=== PATIENT | female | born 1945 | race Two or more races ===

== ENCOUNTER 2017-09-10 00:27 | Emergency (ER) | payer OTHER ==
[~2017-09-10] VITALS: Ht 165.1 cm; Wt 92.1 kg
[2017-09-10] MEDS ORDERED: ALTACE5 MG (00:35)
[2017-09-10] MEDS ORDERED: XARELTO10 MG (00:35)
[2017-09-10] MEDS ORDERED: ULTRACET PO (03:21)
== END 2017-09-10 03:25 ==
LOC: ER 00:27
DX: M25.562 Pain in left knee (principal)

== ENCOUNTER 2021-01-09 12:31 | Outpatient (CLI) | payer OTHER ==
[~2021-01-09 12:31] MED LIST: ALTACE5 MG; ULTRACET PO; XARELTO10 MG
== END 2021-01-09 12:32 | disposition home or self-care (01) ==
LOC: NUCLEAR 12:31
PROVIDERS: ATTEND Family Medicine Adult Medicine
DX: M81.0 Age-related osteoporosis without current pathological fracture (principal)

== ENCOUNTER 2021-04-02 12:17 | Emergency (ER) | payer OTHER ==
[~2021-04-02] VITALS: Ht 165.1 cm; Wt 90.7 kg
[2021-04-02] MEDS ORDERED: AMLODIPINE-OLM1 EACH PO (12:35)
[2021-04-02] MEDS ORDERED: LEVOTHYROXINE25 MCG PO (12:35)
== END 2021-04-02 21:16 | disposition home or self-care (01) ==
LOC: ER 12:17
DX: R07.89 Other chest pain (principal); I10 Essential (primary) hypertension

== ENCOUNTER 2021-04-24 08:16 | Outpatient (CLI) | payer OTHER ==
[~2021-04-24 08:16] MED LIST changes: +AMLODIPINE-OLM1 EACH PO; +LEVOTHYROXINE25 MCG PO
== END 2021-04-24 08:27 | disposition home or self-care (01) ==
LOC: SONOGRAMA 08:16
PROVIDERS: ATTEND Family Medicine Adult Medicine
DX: E03.9 Hypothyroidism, unspecified (principal); I20.8 Other forms of angina pectoris

== ENCOUNTER 2022-08-23 09:38 | Outpatient (CLI) | payer OTHER | END 2022-08-23 09:39 | disposition home or self-care (01) | LOC: RAD 09:38 | PROVIDERS: ATTEND Internal Medicine Pulmonary Disease | DX: R06.02 Shortness of breath (principal) ==

== ENCOUNTER 2022-10-21 14:20 | Emergency (ER) | payer OTHER ==
[~2022-10-21] VITALS: Ht 162.6 cm; Wt 83.5 kg
[2022-10-21] MEDS ORDERED: ATORVASTATIN CA20 MG PO (14:44)
[2022-10-21] MEDS ORDERED: DICLOFENAC SODI75 MG PO (18:21)
[2022-10-21] MEDS ORDERED: LEVOFLOXACIN750 MG PO (18:21)
== END 2022-10-21 18:32 | disposition home or self-care (01) ==
LOC: ER 14:20
DX: N39.0 Urinary tract infection, site not specified (principal); M54.9 Dorsalgia, unspecified; M51.37 Other intervertebral disc degeneration, lumbosacral region
CPT/HCPCS: 71046; 72100; 96372; 99284; J0696; J1885; J3301

== ENCOUNTER 2022-11-03 11:03 | Outpatient (CLI) | payer OTHER ==
[~2022-11-03 11:03] MED LIST changes: +ATORVASTATIN CA20 MG PO; +DICLOFENAC SODI75 MG PO; +LEVOFLOXACIN750 MG PO
== END 2022-11-03 11:11 | disposition home or self-care (01) ==
LOC: RAD 11:03
PROVIDERS: ATTEND Family Medicine Adult Medicine
DX: M19.019 Primary osteoarthritis, unspecified shoulder (principal)

== ENCOUNTER → 2024-01-19 13:34 | Outpatient (CLI) | payer OTHER | END | disposition home or self-care (01) | LOC: NUCLEAR 12-29 13:30 | PROVIDERS: ATTEND Family Medicine Adult Medicine | DX: M81.0 Age-related osteoporosis without current pathological fracture (principal) ==

== ENCOUNTER 2024-04-10 10:54 | Inpatient (IN) | payer OTHER ==
[~2024-04-10] VITALS: Ht 162.6 cm; Wt 98.4 kg
[2024-04-10] MEDS ORDERED: XARELTO20 M1 (11:33)
[2024-04-10] MEDS ORDERED: FARXIGA5 MG (11:33)
--- NOTE | 2024-04-10 11:53 | NUR ---
SE RECIBE PACIENTE ALERTA Y ORIENTADA X 3 ESFERAS EN [place] Y EN COMPANIA DE FAMILIAR LA CUAL INDICA QUE PACIENTE DESDE HACE JAILENE SEMANA PRESENTA FATIGA Y EDEMA EN EXTREMIDADES INFERIORES. PACIENTE CON REFERIDO MEDICO DE LA KEITH.IVET ADLER POR HIPOXEMIA. SE REALIZA EKG Y SE PRESENTA A DR.ENRIQUEZ. SE CONECTA A MONITOR CARDIACO Y OXIMETRIA DE PULSO.
[2024-04-10 13:00] LABS: ABG PH 7.341 (7.35-7.45); ABG PO2 69.1 mmHg (80-100); ABG pCO2 31.3 mmHg (35-45); BASE EXCESS -7.9 mmol/l; BICARBONATE 16.5 mmol/l (23-25); SaO2 91.8 %; Tco2 17.5 mmol/l
--- NOTE | 2024-04-10 13:08 | NUR ---
SE NOTIFICA DOMINIC A MS FALU.
[2024-04-10 13:58] LABS: allen test SATISFACTORY; o2 32 %; puncture site RADIAL RIGHT
[2024-04-10 15:12] LABS: HEMATOCRIT 45.9 % (36.0-45.00); HEMOGLOBIN 14.5 g/dL (12.0-15.00); MEAN CELL VOLUME 94.6 fL (80.00-100.00); MEAN CORPUSCULAR HEMOGLOBIN 29.9 pg (27.00-32.0); MEAN CORPUSCULAR HGB CONC 31.6 g/dl (32.0-36.0); PLATELET COUNT 132 K/uL (150-450); RED BLOOD COUNT 4.85 M/uL (4.00-6.00); RED CELL DISTRIBUTION WIDTH 17.3 % (11.5-14.5)
[2024-04-10 15:36] LABS: ALBUMIN 3.7 gm/dL (3.4-5.0); BILIRUBIN TOTAL 0.95 mg/dL (0.3-1.2); CALCIUM 9.2 mg/dL (8.5-10.1); CREATININE SERUM 2.05 mg/dL (0.55-1.02); GFR 23.36; GLOBULINA 3.4 G/DL (2.4-3.5); POTASSIUM 4.95 mEq/L (3.5-5.1); TOTAL PROTEIN 7.1 gm/dL (6.4-8.2)
[2024-04-10 17:05] LABS: URINE APPEARANCE Clear; URINE BILIRRUBIN Negative (NEGATIVE); URINE BLOOD Negative; URINE COLOR Yellow; URINE GLUCOSE Negative (NEGATIVE); URINE KETONE Negative (NEGATIVE); URINE LEUKOCYTE Trace; URINE NITRATE Negative; URINE PROTEIN Negative (NEGATIVE); URINE UROBILINOGEN 0.2 E.U./dl
[2024-04-10 17:09] LABS: URINE BACTERIA 106.4 uL (0.0-1933); URINE CAST 8.39 uL (0.0-1.40); URINE EPITHELIAL CELLS 27.3 uL (0.0-38.8); URINE WBC 25.8 uL (0.0-23.2)
[2024-04-10 17:15] LABS: URINE RBC 1.1 uL (0.0-20.8)
[2024-04-10] MEDS ORDERED: IPRATROPIUM BROMIDE 0.5 MG/2.5 ML AMPUL.NEB IH SCH (18:33)
[2024-04-10] MEDS ORDERED: FUROsemide 40 MG/4 ML VIAL IV SCH (18:38)
[2024-04-10] MEDS ORDERED: ACETAMINOPHEN 500 MG GEL..CAP PO PRN (18:45)
[2024-04-10] MEDS ORDERED: ONDANSETRON HCL 4 MG in 0.9 % SODIUM CHLORIDE 50 ML IV PRN (18:45)
[2024-04-10] MEDS ORDERED: FUROsemide 40 MG/4 ML VIAL ONE (20:28)
[2024-04-10 21:00] VITALS: BP 110/56; O2SAT 95
[2024-04-10 23:00] VITALS: BP 99/59; O2SAT 97
[2024-04-11] VITALS (17 sets, daily range): BP systolic 82–135; BP diastolic 43–84; O2SAT 94–100
[2024-04-11] MEDS ORDERED: LEVOTHYROXINE SODIUM 112 MCG TABLET PO SCH (06:00)
[2024-04-11 07:14] LABS: CHOL HDL RATIO 1.8 (0-5.0); MAGNESIUM 2.7 mg/dL (1.8-2.4); PHOSPHOROUS 4.5 mg/dL (2.5-4.9); TSH 3.68 uIU/mL (0.358-3.74)
[2024-04-11] MEDS ORDERED: CHLORHEXIDINE GLUCONATE 120 ML BOTTLE TOP ONE (08:03)
[2024-04-11] MEDS ORDERED: AMLODIPINE BESYLATE 5 MG TABLET PO SCH (09:00)
[2024-04-11] MEDS ORDERED: SERTRALINE HCL 25 MG TABLET PO SCH (09:00)
[2024-04-11] MEDS ORDERED: FAMOTIDINE/PF 20 MG in 0.9 % SODIUM CHLORIDE 8 ML IV PUSH SCH (09:00)
[2024-04-11] MEDS ORDERED: RIVAROXABAN 20 MG TABLET PO SCH (09:00)
[2024-04-11] MEDS ORDERED: ATORVASTATIN CALCIUM 20 MG TABLET PO SCH (09:00)
[2024-04-11] MEDS ORDERED: NOREPINEPHRINE BITARTRATE 1 MG/ML AMPUL IV SCH (13:45)
[2024-04-11] MEDS ORDERED: NOREPINEPHRINE BITARTRATE 4 MG/D5W WITH TITRATING INSTRUCTIONS IV SCH (14:15)
[2024-04-12] VITALS (11 sets, daily range): BP systolic 96–159; BP diastolic 58–78; O2SAT 92–98
[2024-04-12 06:49] LABS: HEMATOCRIT 38.6 % (36.0-45.00); HEMOGLOBIN 12.8 g/dL (12.0-15.00); MEAN CELL VOLUME 92.5 fL (80.00-100.00); MEAN CORPUSCULAR HEMOGLOBIN 30.6 pg (27.00-32.0); MEAN CORPUSCULAR HGB CONC 33.1 g/dl (32.0-36.0); RED BLOOD COUNT 4.18 M/uL (4.00-6.00); RED CELL DISTRIBUTION WIDTH 16.9 % (11.5-14.5)
[2024-04-12 07:15] LABS: PLATELET COUNT 122 K/uL (150-450)
[2024-04-12 07:34] LABS: ALBUMIN 3.3 gm/dL (3.4-5.0); BILIRUBIN TOTAL 1.03 mg/dL (0.3-1.2); CREATININE SERUM 1.85 mg/dL (0.55-1.02); GFR 26.3; GLOBULINA 2.7 G/DL (2.4-3.5); MAGNESIUM 2.6 mg/dL (1.8-2.4); PHOSPHOROUS 4.3 mg/dL (2.5-4.9); POTASSIUM 4.31 mEq/L (3.5-5.1)
[2024-04-12] MEDS ORDERED: RIVAROXABAN 15 MG TABLET PO SCH (09:00)
[2024-04-13 04:00] VITALS: BP 113/81; O2SAT 96
[2024-04-13 07:30] VITALS: BP 117/84; O2SAT 95
[2024-04-13] MEDS ORDERED: PANTOPRAZOLE SODIUM 40 MG TABLET.DR PO SCH (12:00)
[2024-04-13 16:06] VITALS: BP 125/75; O2SAT 96
[2024-04-13 20:48] VITALS: BP 138/82
[2024-04-13] MEDS ORDERED: FUROsemide 20 MG/2 ML VIAL IV SCH (21:00)
[2024-04-14] VITALS (8 sets, daily range): BP systolic 113–145; BP diastolic 68–84; O2SAT 93–97
[2024-04-14 07:28] LABS: HEMATOCRIT 40.8 % (36.0-45.00); HEMOGLOBIN 13.4 g/dL (12.0-15.00); MEAN CELL VOLUME 92.5 fL (80.00-100.00); MEAN CORPUSCULAR HEMOGLOBIN 30.5 pg (27.00-32.0); PLATELET COUNT 139 K/uL (150-450); RED BLOOD COUNT 4.41 M/uL (4.00-6.00); RED CELL DISTRIBUTION WIDTH 17.2 % (11.5-14.5)
[2024-04-14 07:53] LABS: ALBUMIN 3.6 gm/dL (3.4-5.0); BILIRUBIN TOTAL 1.31 mg/dL (0.3-1.2); CALCIUM 9.2 mg/dL (8.5-10.1); CREATININE SERUM 1.96 mg/dL (0.55-1.02); GFR 24.6; GLOBULINA 3.1 G/DL (2.4-3.5); MAGNESIUM 2.5 mg/dL (1.8-2.4); PHOSPHOROUS 3.8 mg/dL (2.5-4.9); POTASSIUM 4.08 mEq/L (3.5-5.1); TOTAL PROTEIN 6.7 gm/dL (6.4-8.2)
[2024-04-14] MEDS ORDERED: ZOLPIDEM TARTRATE 5 MG TABLET PO SCH (21:00)
[2024-04-15] VITALS (8 sets, daily range): BP systolic 96–126; BP diastolic 63–70; O2SAT 91–100
[2024-04-15] MEDS ORDERED: FUROsemide 20 MG/2 ML VIAL IV SCH (09:00)
[2024-04-16 03:15] VITALS: BP 127/79
[2024-04-16 06:00] VITALS: O2SAT 96
[2024-04-16 07:06] LABS: HEMATOCRIT 39.9 % (36.0-45.00); HEMOGLOBIN 12.9 g/dL (12.0-15.00); MEAN CELL VOLUME 93.4 fL (80.00-100.00); MEAN CORPUSCULAR HEMOGLOBIN 30.1 pg (27.00-32.0); MEAN CORPUSCULAR HGB CONC 32.3 g/dl (32.0-36.0); RED BLOOD COUNT 4.27 M/uL (4.00-6.00); RED CELL DISTRIBUTION WIDTH 16.9 % (11.5-14.5)
[2024-04-16 07:15] LABS: PLATELET COUNT 124 K/uL (150-450)
[2024-04-16 07:52] LABS: ALBUMIN 3.7 gm/dL (3.4-5.0); BILIRUBIN TOTAL 1.09 mg/dL (0.3-1.2); CALCIUM 9.1 mg/dL (8.5-10.1); CREATININE SERUM 1.89 mg/dL (0.55-1.02); GFR 25.66; MAGNESIUM 2.5 mg/dL (1.8-2.4); PHOSPHOROUS 3.7 mg/dL (2.5-4.9); POTASSIUM 4.07 mEq/L (3.5-5.1); TOTAL PROTEIN 6.7 gm/dL (6.4-8.2)
[2024-04-16 08:59] VITALS: BP 120/64; O2SAT 98
[2024-04-16] MEDS ORDERED: BUMETANIDE 0.5 MG TABLET PO SCH (09:00)
[2024-04-16 09:09] VITALS: O2SAT 90
[2024-04-16] MEDS ORDERED: XARELTO15 MG PO (13:24)
[2024-04-16] MEDS ORDERED: TOPROL XL25 M1 PO (13:24)
[2024-04-16] MEDS ORDERED: LIPITOR20 MG PO (13:25)
[2024-04-16] MEDS ORDERED: SERTRALINE HCL25 MG PO (13:25)
[2024-04-16] MEDS ORDERED: LEVOTHYROXINE112 MCG PO (13:25)
[2024-04-16] MEDS ORDERED: BUMETANIDE0.5 MG PO (13:25)
[2024-04-16] MEDS ORDERED: PANTOPRAZOLE SO20 MG PO (13:28)
== END 2024-04-16 13:41 | disposition home or self-care (01) | DRG 292 ==
LOC: ER 10:57 → ICU-2 20:40 → O/R 04-11 12:22 → ICU-2 04-11 12:25 → ICU 04-11 18:33 → MEDJ 04-13 17:57
PROVIDERS: Emergency Medicine; General Practice; ADMIT Internal Medicine; ATTEND Internal Medicine
PROC: 4A12X4Z Monitoring of Cardiac Electrical Activity, External Approach (ICD-10-PCS; principal; 2024-04-10)
PROC: BT43ZZZ Ultrasonography of Bilateral Kidneys (ICD-10-PCS; 2024-04-10)
PROC: BB24ZZZ Computerized Tomography (CT Scan) of Bilateral Lungs (ICD-10-PCS; 2024-04-10)
PROC: B246ZZZ Ultrasonography of Right and Left Heart (ICD-10-PCS; 2024-04-11)
PROC: 3E0F7GC Introduction of Other Therapeutic Substance into Respiratory Tract, Via Natural or Artificial Opening (ICD-10-PCS; 2024-04-11)
DX: I50.813 Acute on chronic right heart failure (principal); E87.21 Acute metabolic acidosis; I13.0 Hypertensive heart and chronic kidney disease with heart failure and stage 1 through stage 4 chronic kidney disease, or unspecified chronic kidney disease; N17.9 Acute kidney failure, unspecified; J90 Pleural effusion, not elsewhere classified; E87.70 Fluid overload, unspecified; I48.91 Unspecified atrial fibrillation; D69.59 Other secondary thrombocytopenia; E03.9 Hypothyroidism, unspecified; N18.9 Chronic kidney disease, unspecified; R60.1 Generalized edema; G47.33 Obstructive sleep apnea (adult) (pediatric)

== ENCOUNTER 2024-04-18 21:36 | Inpatient (IN) | payer OTHER ==
[~2024-04-18] VITALS: Ht 162.6 cm; Wt 98.4 kg
[~2024-04-18 21:36] MED LIST changes: +BUMETANIDE0.5 MG PO; +FARXIGA5 MG; +LEVOTHYROXINE112 MCG PO; +LIPITOR20 MG PO; +PANTOPRAZOLE SO20 MG PO; +SERTRALINE HCL25 MG PO; +TOPROL XL25 M1 PO; +XARELTO15 MG PO; +XARELTO20 M1
[2024-04-19] MEDS ORDERED: 0.9 % SODIUM CHLORIDE 500 ML IV ONE (00:30)
[2024-04-19 00:45] LABS: HEMATOCRIT 42.7 % (36.0-45.00); HEMOGLOBIN 14.1 g/dL (12.0-15.00); MEAN CELL VOLUME 92.9 fL (80.00-100.00); MEAN CORPUSCULAR HEMOGLOBIN 30.5 pg (27.00-32.0); MEAN CORPUSCULAR HGB CONC 32.9 g/dl (32.0-36.0); PLATELET COUNT 139 K/uL (150-450); RED CELL DISTRIBUTION WIDTH 17.3 % (11.5-14.5)
[2024-04-19 01:10] LABS: INR 2.21; PARTIAL THROMBOPLASTIN TIME 37.5 SECONDS (22.0-34.0)
[2024-04-19 01:11] LABS: PROTHROMBIN TIME 22.7 SECONDS (9.0-11.5)
[2024-04-19 01:14] LABS: ALBUMIN 3.5 gm/dL (3.4-5.0); BILIRUBIN TOTAL 0.95 mg/dL (0.3-1.2); CREATININE SERUM 2.56 mg/dL (0.55-1.02); GFR 18.08; GLOBULINA 3.1 G/DL (2.4-3.5); POTASSIUM 4.78 mEq/L (3.5-5.1); TOTAL PROTEIN 6.6 gm/dL (6.4-8.2)
[2024-04-19 01:25] LABS: URINE APPEARANCE Turbid; URINE BILIRRUBIN Negative (NEGATIVE); URINE BLOOD Moderate; URINE COLOR Yellow; URINE GLUCOSE Negative (NEGATIVE); URINE KETONE Negative (NEGATIVE); URINE LEUKOCYTE Large; URINE NITRATE Negative; URINE PROTEIN 30 (NEGATIVE)
[2024-04-19 01:28] LABS: URINE CAST 12.22 uL (0.0-1.40); URINE EPITHELIAL CELLS 44.9 uL (0.0-38.8); URINE RBC 66.8 uL (0.0-20.8); URINE WBC 1044.9 uL (0.0-23.2)
[2024-04-19 01:43] LABS: URINE BACTERIA > 9821.5 uL (0.0-1933)
[2024-04-19 01:44] LABS: URINE MUCUS SCANT
[2024-04-19] MEDS ORDERED: LEVALBUTEROL HCL 0.63 MG/3 ML SOLUTION IH ONE (05:22)
[2024-04-19] MEDS ORDERED: CEFTRIAXONE SODIUM 1,000 MG VIAL IV STA (05:25)
[2024-04-19] MEDS ORDERED: LEVALBUTEROL HCL 0.63 MG/3 ML SOLUTION IH STA (05:25)
[2024-04-19] MEDS ORDERED: LEVALBUTEROL HCL 0.63 MG/3 ML SOLUTION IH SCH ×2 (06:00→12:00)
[2024-04-19 06:27] LABS: ABG PH 7.409 (7.35-7.45); ABG PO2 73.8 mmHg (80-100); ABG pCO2 27.9 mmHg (35-45); BASE EXCESS -5.7 mmol/l; BICARBONATE 17.3 mmol/l (23-25); SaO2 94.5 %; Tco2 18.1 mmol/l; allen test SATISFACTORY; o2 28 %; puncture site RADIAL LEFT
[2024-04-19] MEDS ORDERED: CEFTRIAXONE SODIUM 1,000 MG VIAL ONE (06:36)
[2024-04-19] MEDS ORDERED: LEVALBUTEROL HCL 1.25 MG/3 ML SOLUTION IH ONE (09:40)
[2024-04-19 10:10] LABS: ABG PH 7.394 (7.35-7.45); ABG pCO2 29.6 mmHg (35-45); BASE EXCESS -5.8 mmol/l; BICARBONATE 17.7 mmol/l (23-25); SaO2 87.7 %; Tco2 18.6 mmol/l
[2024-04-19 11:14] LABS: ABG PO2 55.4 mmHg (80-100); allen test SATISFACTORY; o2 21 %; puncture site RADIAL LEFT
[2024-04-19] MEDS ORDERED: RIVAROXABAN 15 MG TABLET PO SCH (11:28)
[2024-04-19] MEDS ORDERED: FUROsemide 20 MG/2 ML VIAL IV SCH (11:28)
[2024-04-19] MEDS ORDERED: PANTOPRAZOLE SODIUM 40 MG TABLET.DR PO SCH (11:28)
[2024-04-19 12:47] VITALS: BP 95/63
[2024-04-19 15:49] VITALS: BP 93/60; O2SAT 95
[2024-04-19 18:22] VITALS: BP 112/65
[2024-04-20] VITALS (7 sets, daily range): BP systolic 97–137; BP diastolic 60–80; O2SAT 91–97
[2024-04-20 06:17] LABS: HEMATOCRIT 41.5 % (36.0-45.00); HEMOGLOBIN 13.7 g/dL (12.0-15.00); MEAN CELL VOLUME 92.7 fL (80.00-100.00); MEAN CORPUSCULAR HEMOGLOBIN 30.7 pg (27.00-32.0); MEAN CORPUSCULAR HGB CONC 33.1 g/dl (32.0-36.0); RED BLOOD COUNT 4.47 M/uL (4.00-6.00); RED CELL DISTRIBUTION WIDTH 17.7 % (11.5-14.5)
[2024-04-20 06:26] LABS: PLATELET COUNT 126 K/uL (150-450)
[2024-04-20 07:14] LABS: ALBUMIN 3.5 gm/dL (3.4-5.0); BILIRUBIN TOTAL 0.96 mg/dL (0.3-1.2); CALCIUM 9.2 mg/dL (8.5-10.1); CREATININE SERUM 2.14 mg/dL (0.55-1.02); GFR 22.23; MAGNESIUM 2.5 mg/dL (1.8-2.4); POTASSIUM 4.05 mEq/L (3.5-5.1); TOTAL PROTEIN 6.5 gm/dL (6.4-8.2)
[2024-04-20] MEDS ORDERED: CEFTRIAXONE SODIUM 2,000 MG VIAL IV SCH (09:00)
[2024-04-21] VITALS (7 sets, daily range): BP systolic 106–140; BP diastolic 63–87; O2SAT 90–97
[2024-04-21] MEDS ORDERED: ZOLPIDEM TARTRATE 5 MG TABLET PO STA (02:03)
[2024-04-21 08:28] LABS: ALBUMIN 3.6 gm/dL (3.4-5.0); BILIRUBIN TOTAL 1.17 mg/dL (0.3-1.2); CALCIUM 9.2 mg/dL (8.5-10.1); CREATININE SERUM 2.02 mg/dL (0.55-1.02); GFR 23.76; POTASSIUM 3.66 mEq/L (3.5-5.1); TOTAL PROTEIN 6.6 gm/dL (6.4-8.2)
[2024-04-21] MEDS ORDERED: ACETAMINOPHEN 500 MG GEL..CAP PO PRN ×2 (09:45→11:14)
[2024-04-21] MEDS ORDERED: BENZONATATE 100 MG CAPSULE PO SCH (09:45)
[2024-04-21] MEDS ORDERED: ZOLPIDEM TARTRATE 5 MG TABLET PO SCH (21:00)
[2024-04-22] VITALS (8 sets, daily range): BP systolic 105–120; BP diastolic 66–81; O2SAT 94–98
[2024-04-22] MEDS ORDERED: FUROsemide 20 MG/2 ML VIAL IV SCH (09:00)
[2024-04-22 18:35] LABS: ABG PH 7.438 (7.35-7.45); ABG pCO2 31.6 mmHg (35-45); BASE EXCESS -2.2 mmol/l; BICARBONATE 20.9 mmol/l (23-25); SaO2 82.2 %; Tco2 21.9 mmol/l
[2024-04-22 18:44] LABS: ABG PO2 44.9 mmHg (80-100); allen test SATISFACTORY; o2 21 %; puncture site RADIAL RIGHT
[2024-04-22] MEDS ORDERED: MELATONIN 5 MG TABLET PO STA (23:29)
[2024-04-22] MEDS ORDERED: GUAIFEN/DEXTROMETHORPHAN/PE 10 ML BLIST.PACK PO PRN (23:30)
[2024-04-23] VITALS: O2SAT 90
[2024-04-23 01:11] VITALS: BP 118/67; O2SAT 99
[2024-04-23] MEDS ORDERED: FUROsemide 20 MG TABLET PO SCH (09:00)
[2024-04-23 09:51] VITALS: BP 123/74
[2024-04-23 10:13] VITALS: O2SAT 96
[2024-04-23 13:08] LABS: HEMATOCRIT 42.7 % (36.0-45.00); HEMOGLOBIN 13.9 g/dL (12.0-15.00); MEAN CELL VOLUME 92.8 fL (80.00-100.00); MEAN CORPUSCULAR HEMOGLOBIN 30.2 pg (27.00-32.0); MEAN CORPUSCULAR HGB CONC 32.6 g/dl (32.0-36.0); RED CELL DISTRIBUTION WIDTH 17.8 % (11.5-14.5)
[2024-04-23 13:47] LABS: PLATELET COUNT 129 K/uL (150-450)
[2024-04-23 13:54] LABS: ALBUMIN 3.6 gm/dL (3.4-5.0); BILIRUBIN TOTAL 1.64 mg/dL (0.3-1.2); CALCIUM 9.2 mg/dL (8.5-10.1); CREATININE SERUM 1.75 mg/dL (0.55-1.02); GFR 28.04; GLOBULINA 3.3 G/DL (2.4-3.5); POTASSIUM 3.99 mEq/L (3.5-5.1); TOTAL PROTEIN 6.9 gm/dL (6.4-8.2)
[2024-04-23] MEDS ORDERED: XARELTO15 MG PO (15:17)
[2024-04-23] MEDS ORDERED: BENZONATATE100 MG PO (15:18)
[2024-04-23] MEDS ORDERED: FUROSEMIDE20 MG PO (15:18)
[2024-04-23] MEDS ORDERED: ALTIPRES LIQUI473 ML PO (15:18)
== END 2024-04-23 15:33 | disposition home or self-care (01) | DRG 689 ==
LOC: ER 21:39 → SEC-K 04-19 11:57 → MEDJ 04-19 11:57
PROVIDERS: General Practice; Internal Medicine; ADMIT Internal Medicine; ATTEND Internal Medicine
PROC: 3E0F7GC Introduction of Other Therapeutic Substance into Respiratory Tract, Via Natural or Artificial Opening (ICD-10-PCS; principal; 2024-04-19)
PROC: 4A12X4Z Monitoring of Cardiac Electrical Activity, External Approach (ICD-10-PCS; 2024-04-20)
DX: N39.0 Urinary tract infection, site not specified (principal); I50.33 Acute on chronic diastolic (congestive) heart failure; N17.8 Other acute kidney failure; I48.20 Chronic atrial fibrillation, unspecified; I11.0 Hypertensive heart disease with heart failure; N18.9 Chronic kidney disease, unspecified; I27.20 Pulmonary hypertension, unspecified; G47.33 Obstructive sleep apnea (adult) (pediatric); R09.02 Hypoxemia; E03.9 Hypothyroidism, unspecified

== ENCOUNTER 2024-05-04 19:49 | Inpatient (IN) | payer OTHER ==
[~2024-05-04] VITALS: Ht 162.6 cm; Wt 90.7 kg
[~2024-05-04 19:49] MED LIST changes: +ALTIPRES LIQUI473 ML PO; +BENZONATATE100 MG PO; +FUROSEMIDE20 MG PO
[2024-05-04] MEDS ORDERED: PIPERACILLIN/TAZOBACTAM SODIUM 3.375 GM VIAL IV ONE (20:45)
[2024-05-04] MEDS ORDERED: FUROsemide 20 MG/2 ML VIAL IV ONE (20:45)
[2024-05-04] MEDS ORDERED: 0.9 % SODIUM CHLORIDE 1,000 ML IV ONE (20:45)
[2024-05-04] MEDS ORDERED: IPRATROPIUM BROMIDE 0.5 MG/2.5 ML AMPUL.NEB IH ONE (20:45)
[2024-05-04] MEDS ORDERED: FAMOtidine 10 MG/ML (4ML VIAL) IV ONE (20:45)
[2024-05-04] MEDS ORDERED: LEVALBUTEROL HCL 1.25 MG/3 ML SOLUTION IH ONE (20:45)
[2024-05-04] MEDS ORDERED: METHYLPREDNISOLONE SOD SUCC 125 MG VIAL IV ONE (20:45)
[2024-05-04 20:50] LABS: ABG PH 7.447 (7.35-7.45); ABG pCO2 28.4 mmHg (35-45); BASE EXCESS -3.3 mmol/l; BICARBONATE 19.2 mmol/l (23-25); SaO2 84.4 %; Tco2 20.1 mmol/l
[2024-05-04 21:05] LABS: allen test SATISFACTORY; o2 21 %; puncture site RADIAL RIGHT
[2024-05-04] MEDS ORDERED: MONTELUKAST SODI4 M1 PO (21:13)
[2024-05-04] MEDS ORDERED: LEVOXYL112 MCG PO (21:13)
[2024-05-04] MEDS ORDERED: LASIX20 MG PO (21:13)
[2024-05-04] MEDS ORDERED: PROTONIX20 MG PO (21:13)
[2024-05-04] MEDS ORDERED: XARELTO15 M1 PO (21:13)
[2024-05-04] MEDS ORDERED: SERTRALINE20 MG/1 ML PO (21:13)
[2024-05-04] MEDS ORDERED: FARXIGA10 MG PO (21:13)
[2024-05-04] MEDS ORDERED: TRAZODONE HCL150 MG PO (21:14)
[2024-05-04 21:44] LABS: HEMATOCRIT 40.3 % (36.0-45.00); MEAN CELL VOLUME 89.6 fL (80.00-100.00); MEAN CORPUSCULAR HGB CONC 32.3 g/dl (32.0-36.0); PLATELET COUNT 195 K/uL (150-450); RED CELL DISTRIBUTION WIDTH 17.2 % (11.5-14.5)
[2024-05-04 21:49] LABS: ERYTHROCYTE SEDIMENTATION RATE 9 mm/hr
--- NOTE | 2024-05-04 21:53 | NUR ---
SE RECIBE PACIENTE AL AREA DE CRITICO DESDE AREA DE OBSERVACION POR DIFICULTAD RESPIRATORIA. SE CONECTA PACIENTE A MONITOR CARDIACO Y OXIMETRIA DE PULSO CONTINUA. SE OBSERVA NON-REABRETHING MASK. PACIENTE CANALIZADA EN RA Y LA CON ANGIOS #20 QUE SE ENCUENTRAN PATENTES, LIBRES DE EDEMA Y PROCESOS INFECCIOSOS. ABDOMEN SE OBSERVA DISTENDIDO. SE EXTRAEN MUESTRAS DE LABORATORIO Y SE ADMINISTRAN MEDICAMENTOS WENDY ORDEN MEDICA.
[2024-05-04 22:10] LABS: INR 2.07; PARTIAL THROMBOPLASTIN TIME 39.6 SECONDS (22.0-34.0); PROTHROMBIN TIME 21.4 SECONDS (9.0-11.5)
[2024-05-04] MEDS ORDERED: NITROGLYCERIN IN 5 % DEXTROSE 250 ML IV SCH (22:44)
--- NOTE | 2024-05-04 23:00 | NUR ---
PACIENTE FEMENINA ALERTA Y ORIENTADA X3, EN EL AREA DE CRITICO EN LA CAMA #1 CON BARANDAS ELEVADAS. CONECTADA A MONITOR CARDIACO, OXIEMTRIA DE PULSO Y VENTURY MASK AL 50%. AREA DE VENOPUNCION EN EL BRAZO DERECHO CANALIZADA CON ANGIO #20 Y SE LE COLOCA 0.9 NSS 1,000 BAJANDO A 21ML/HR Y SEGUNDA VENOPUNCION EN EL BRAZO IRAM Y SE CANALIZA CON ANGIO #20 Y SE LE COLOCA H/L PATENTE ALVERTO DE EDEMA Y ENROJECIMIENTO. SE LE INSERTA PAINTING #16 CON MEDIDAS ASEPTICAS Y ESTERILES Y SE OBSERVA ORINA COLOR AMARILLO ANGELA. SE OBSERVA POR CAMBIOS.
[2024-05-04 23:45] LABS: ALBUMIN 3.1 gm/dL (3.4-5.0); BILIRUBIN TOTAL 1.28 mg/dL (0.3-1.2); CALCIUM 8.8 mg/dL (8.5-10.1); CREATININE SERUM 1.82 mg/dL (0.55-1.02); GFR 26.8; GLOBULINA 3.4 G/DL (2.4-3.5); POTASSIUM 4.01 mEq/L (3.5-5.1); TOTAL PROTEIN 6.5 gm/dL (6.4-8.2)
[2024-05-05 00:03] LABS: C-REACTIVE PROTEIN 1.77 MG/DL (0.00-0.29)
[2024-05-05 00:07] LABS: URINE APPEARANCE Clear; URINE BILIRRUBIN Negative (NEGATIVE); URINE BLOOD Negative; URINE COLOR Yellow; URINE GLUCOSE Negative (NEGATIVE); URINE KETONE Negative (NEGATIVE); URINE LEUKOCYTE Negative; URINE NITRATE Negative; URINE PROTEIN Negative (NEGATIVE); URINE UROBILINOGEN 0.2 E.U./dl
[2024-05-05 00:51] LABS: URINE BACTERIA 6.1 uL (0.0-1933); URINE EPITHELIAL CELLS 3.1 uL (0.0-38.8); URINE WBC 3.4 uL (0.0-23.2)
[2024-05-05 00:54] LABS: URINE CAST 0.73 uL (0.0-1.40); URINE RBC 0.5 uL (0.0-20.8)
--- NOTE | 2024-05-05 00:59 | NUR ---
SE NOTIFICA BIPAP, TEREPIAS Y RSV A Hillary MAYRA.
[2024-05-05] MEDS ORDERED: IPRATROPIUM/ALBUTEROL SULFATE 3 ML AMPUL.NEB IH SCH (01:00)
--- NOTE | 2024-05-05 02:39 | NUR ---
DR. ADAMS REFIERE SOLO REALIZAR CT DE ISIDOROHO.
[2024-05-05] MEDS ORDERED: HYDROCODONE/CHLORPHEN P-STIREX 5 ML ML PO STA (02:41)
[2024-05-05 05:53] LABS: ABG PH 7.377 (7.35-7.45); ABG PO2 215.4 mmHg (80-100); ABG pCO2 33.7 mmHg (35-45); BASE EXCESS -4.8 mmol/l; BICARBONATE 19.3 mmol/l (23-25); SaO2 99.7 %; Tco2 20.4 mmol/l
[2024-05-05] MEDS ORDERED: LORazepam 1 MG TABLET PO STA (06:31)
[2024-05-05 06:33] LABS: allen test SATISFACTORY; o2 75 %; puncture site RADIAL LEFT
[2024-05-05 09:28] VITALS: BP 87/56; O2SAT 98
[2024-05-05] MEDS ORDERED: CHLORHEXIDINE GLUCONATE 15ML BRUSH KIT MM SCH (11:19)
[2024-05-05] MEDS ORDERED: PANTOPRAZOLE SODIUM 40 MG/VIAL VIAL IV PUSH SCH (11:19)
[2024-05-05] MEDS ORDERED: POLYVINYL ALCOHOL 15 ML DROPS OP SCH (11:19)
[2024-05-05] MEDS ORDERED: ENOXAPARIN SODIUM 100 MG/ML SYRINGE SUBCUTANEO SCH (11:20)
[2024-05-05] MEDS ORDERED: DOPamine HCL IN DEXTROSE 5 % 250 ML IV SCH (11:30)
[2024-05-05] MEDS ORDERED: NOREPINEPHRINE BITARTRATE 4 MG in DEXTROSE 5 % IN WATER 250 ML IV SCH (11:30)
--- NOTE | 2024-05-05 13:35 | NUR ---
0700- SE RECIBE PACIENTE EN CAMA POSICION SEMISENTADA, BARANDAS ELEVADAS Y TIMBRE ASCESIBLE. ALERTA, SE COLOCA BIPAP CON PARAMETROS ORDENADOS Y SE ORIENTA SOBRE LA IMPORTACIA DE TRATAMIENTO. RR-18, SAT-98%. SALINE LOCK EN MANO DERECHA AREA ALVERTO DE SIGNOS DE INFECCION RECIBIENDO 0.9 NSS 1,000 ML A 21 ML/HR. HR-67 RITMO SINUSAL. ABDOMEN DEPRESIBLE CON PERISTALSIS PRESENTE AL MOMENTO. SONDA URINARIA PATENTE ORINA COLOR AMARILLO INTENSO. EXTREMIDADES INFERIORES CON EDEMA. PARAMETROS DE BIPAP I-12, E-6, RR-16, O2-50%. 0800- SE MIDEN Y REPORTAN SIGNOS VITALES. PACIENTE ES CONSULTADA CON MEDICINA INTERNA CON DR. MELYSSA WOOD. 1015- PACIENTE PRESENTA PARO RESPIRATORIO CON BRADICARDIA SINUSAL DE 35 LATIDOS POR MINUTO. PERSONAL DE ANESTESIA INSERTA TUBO ENDOTRAQUEAL 7.5 CON MEDIDA DE 21 EN COMISURA LABIAL, SE VERIFICA PATENTICIDAD CON DETECTOR DE CO2 Y MEDIANTE AUSCULTACION. 1030- PACIENTE PRESENTA HIPOTENSION 80/53 MM/HG. SE COMIENZA LEVOPHED 8 MG/250 ML D5W% A 15 ML/HR. 1032- B/P NO MEDIBLE SE AUMENTA LEVOPHED A 22 ML/HR. 1034- B/P NO MEDIBLE SE AUMENTYA LEVOPHED A 29 ML/HR. 1036- B/P NO MEDIBLE SE AUMENTA LEVOPHED A 35 ML/HR. 1038- B/P NO MEDIBLE SE AUMENTA LEVOPHED A 42 ML/HR. 1040- B/P NO MEDIBLE SE AUMENTA LEVOPHED A 50 ML/HR POR ORDEN DE DR. Fausto PATHAK. 1045- PACIENTE PRESENTA PARO CARDIO RESPIRATORIO SE COMIENZA ACLS. 1048- SE ADMINSTRA EPINEFRINA 1 MG IV Y SE CONTINUA ACLS. 1052- SE ADMINISTRA EPINEFRINA 1 MG IV Y SE CONTINUA ACLS. 1055- SE ADMINISTRA NACHO3 50 MEQ IV. PACIENTE PRESENTA RETORNO ESPONTANEO DE LA CIRCULACION TERMINA ACLS. 1056- SE COMIENZA DOPAMINA 400 MG/ 250 ML A 30 ML/HR POR ORDEN DE DR. ALISIA PATHAK. B/P NO MEDIBLE. 1058- SE AUMENTA DOPAMINA A 50 ML/HR POR ORDEN DE DR. ALISIA PATHAK B/P NO MEDIBLE. 1114- PACIENTE PRESENTA PARO CARDIO RESPIRATORIO, SE COMIENZA ACLS. 1115- SE ADMINISTRA EPINEFRINA I MG IV Y SE CONTINUA ACLS. 1120- SE ADMINISTRA EPINEFRINA 1 MG IV Y SE CONTINUA ACLS. 1125- SE ADMINISTRA EPINEFRINA 1 MG IV Y SE CONTINUA ACLS. 1134- LUEGO DE 20 MINUTOS PACIENTE NO PRESENTA RETORNO ESPONTANEO DE CIRCULACION POR LO QUE ES DECLARADA MUERTE POR DR. WEBBER MEDICO DE PETER DE EMERGENCIAS. 1145- SE OFRECE CUIDADOS POST MORTEM. 1250- SE NOTIFICA MUERTE A LIFE LINK Y [id number].
== END 2024-05-05 15:01 | disposition expired | DRG 189 ==
LOC: ER 19:49 → ICU-2 05-05 11:35
PROVIDERS: General Practice; ADMIT Internal Medicine; ATTEND Internal Medicine
PROC: 0BH17EZ Insertion of Endotracheal Airway into Trachea, Via Natural or Artificial Opening (ICD-10-PCS; principal; 2024-05-05)
PROC: 5A12012 Performance of Cardiac Output, Single, Manual (ICD-10-PCS; 2024-05-05)
DX: J96.01 Acute respiratory failure with hypoxia (principal); I13.0 Hypertensive heart and chronic kidney disease with heart failure and stage 1 through stage 4 chronic kidney disease, or unspecified chronic kidney disease; N17.9 Acute kidney failure, unspecified; I46.9 Cardiac arrest, cause unspecified; N18.9 Chronic kidney disease, unspecified; I50.9 Heart failure, unspecified; R60.0 Localized edema; R14.0 Abdominal distension (gaseous); G47.33 Obstructive sleep apnea (adult) (pediatric); D69.6 Thrombocytopenia, unspecified; I95.9 Hypotension, unspecified; I27.20 Pulmonary hypertension, unspecified; I07.1 Rheumatic tricuspid insufficiency; R60.1 Generalized edema; I48.91 Unspecified atrial fibrillation